=== PATIENT | female | born 2000 | race African-American/Black ===

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

== ENCOUNTER 2018-12-14 | Emergency (ER) | payer SELFPAY ==
[2017-10-07 16:00] VITALS: BP 89/52
[~2018-12-14] MED LIST: BENZ9GEL MM; OLOP5DRO EACHEYE; SULF1TAB24 PO
== END 2018-12-14 02:08 | disposition left against medical advice (07) ==
LOC: ER
DX: H92.02 Otalgia, left ear (principal); Z53.21 Procedure and treatment not carried out due to patient leaving prior to being seen by health care provider

== ENCOUNTER 2020-01-03 12:38 | Emergency (ER) | payer SELFPAY ==
[~2020-01-03] VITALS: Ht 165.1 cm; Wt 53.0 kg
[2020-01-03 13:31] VITALS: BP 106/67
[2020-01-03] MEDS ORDERED: LIDOCAINE 1% Multi-Dose 20 ML VIAL. INJ ONE (14:45)
[2020-01-03] MEDS ORDERED: CEPH-264 PO (15:11)
--- NOTE | 2020-01-03 15:12 | PHYS DOC ---
Past Medical History Past Medical History: No Pertinent History Past Surgical History: No Surgical History Smoking Status: Never Smoker Alcohol Use: None Drug Use: None General Adult EDM: Chief Complaint: FINGER INJURY HPI: HPI: Patient is a 19 year old female who presents with left middle finger paronychia x2 days. She states is not been draining. She states it is tender to touch and its 1+ swollen. Denies numbness or tingling, coolness of the extremity, skin color changes. Cap refill less than 2 seconds. Radial pulse strong and present. Skin pink warm and dry. Patient denies fever. Patient denies past medical history or any medications daily. She rates her pain at this time an 8 out of 10 and is throbbing and tender. There is no radiation. Review of Systems: Review of Systems: Constitutional: Denies fever or chills. [] Eyes: Denies change in visual acuity. [] HENT: Denies nasal congestion or sore throat. [] Respiratory: Denies cough or shortness of breath. [] Cardiovascular: Denies chest pain. Left fingertip 1+ edema. [] GI: Denies abdominal pain, nausea, vomiting, bloody stools or diarrhea. [] : Denies dysuria. [] Musculoskeletal: Denies back pain or joint pain. Fingertip pain. [] Integument: Denies rash. Left fingertip infection, redness and tenderness. [] Neurologic: Denies headache, focal weakness or sensory changes. [] Endocrine: Denies polyuria or polydipsia. [] Lymphatic: Denies swollen glands. [] Psychiatric: Denies depression or anxiety. [] Heart Score: Risk Factors: Risk Factors: DM, Current or recent (<one month) smoker, HTN, HLP, family history of CAD, obesity. Risk Scores: Score 0 - 3: 2.5% MACE over next 6 weeks - Discharge Home Score 4 - 6: 20.3% MACE over next 6 weeks - Admit for Clinical Observation Score 7 - 10: 72.7% MACE over next 6 weeks - Early Invasive Strategies Current Medications: Current Medications Medications (Trade) Dose Ordered Sig/Forest Start Time Stop Time Status Last Admin Dose Admin Lidocaine HCl (Lidocaine 1% 20ml Vial) 20 ml 1X ONCE 01/03/20 14:45 01/03/20 14:46 DC 01/03/20 14:53 20 ML Allergies: Allergies: Allergies Coded Allergies Type Severity Reaction Last Updated Verified No Known Drug Allergies 08/05/14 No Physical Exam: PE: Constitutional: Well developed, well nourished, no acute distress, non-toxic appearance. [] HENT: Normocephalic, atraumatic, bilateral external ears normal, oropharynx moist, no oral exudates, nose normal. [] Eyes: PERRLA, EOMI, conjunctiva normal, no discharge. [] Neck: Normal range of motion, no tenderness, supple, no stridor. [] Cardiovascular:Heart rate regular rhythm, no murmur [] Lungs & Thorax: Bilateral breath sounds clear to auscultation [] Abdomen: Bowel sounds normal, soft, no tenderness, no masses, no pulsatile masses. [] Skin: Warm, dry, left fingertip erythema, no rash. [] Back: No tenderness, no CVA tenderness. [] Extremities: No tenderness, no cyanosis, no clubbing, ROM intact, fingertip 1+ edema. [] Neurologic: Alert and oriented X 3, normal motor function, normal sensory function, no focal deficits noted. [] Psychologic: Affect normal, judgement normal, mood normal. [] Current Patient Data: Vital Signs: Vital Signs Date Time Temp Pulse Resp B/P (MAP) Pulse Ox O2 Delivery O2 Flow Rate FiO2 01/03/20 13:31 98.6 77 16 106/67 (80) 97 Room Air 98.6 EKG: EKG: [] Radiology/Procedures: Radiology/Procedures: [] Course & Med Decision Making: Course & Med Decision Making Pertinent Labs and Imaging studies reviewed. (See chart for details) See HPI. Patient has full range of motion of all joints in the finger. No joint laxity. Nailbed is not affected. Patient is placed on Keflex antibiotic. She is to follow-up with her primary care physician. My I&D Location: Left middle finger tip Anesthesia: 1% lidocaine Scalpel size: #11 Skin: Reddened, tender 1+ swelling Drainage: Purulent drainage Packing: None Patient tolerated the procedure well with no complications. The area was prepped and draped in usual sterile fashion. Area was cleaned with chloehexidine prior to procedure. Return for signs and symptoms of infection education given. Patient to return in 48 hours for wound recheck. [] Dragon Disclaimer: Jonnathan Disclaimer: This electronic medical record was generated, in whole or in part, using a voice recognition dictation system. Departure Departure Impression: Primary Impression: Paronychia Disposition: 01 HOME, SELF-CARE Condition: STABLE Referrals: NO PCP (PCP) Patient Instructions: Paronychia Additional Instructions: Use warm water Epson salt soaks as much as possible during the day. Keep clean and covered. Take antibiotic with water and as prescribed. Return for worsening symptoms. Scripts Cephalexin (KEFLEX) 500 Mg Capsule 1 CAP PO TID for 7 Days, #21 CAP 0 Refills Prov: TOYIN LUCAS APRN 01/03/20 Justicifation of Admission Dx: Justifications for Admission: Justification of Admission Dx: N/A TOYIN LUCAS APRN Jan 03, 2020 15:11
== END 2020-01-03 15:34 | disposition home or self-care (01) ==
LOC: ER 12:38
DX: L03.012 Cellulitis of left finger (principal)
CPT/HCPCS: 10060; 99283; J3490

== ENCOUNTER 2020-08-24 15:43 | Emergency (ER) | payer SELFPAY ==
[~2020-08-24] VITALS: Ht 160 cm; Wt 52.0 kg
[~2020-08-24 15:43] MED LIST changes: +CEPH-264 PO
[2020-08-24 17:28] LABS: BILIRUBIN,URINE SMALL (NEG); CLARITY,URINE CLEAR; COLOR,URINE YELLOW; NITRITE,URINE NEGATIVE (NEG); PH,URINE 7.5 (<5.0-8.0); PROTEIN,URINE 30 mg/dL (NEG-TRACE)
[2020-08-24] MEDS ORDERED: IV NORMAL SALINE 1000ML BAG 1,000 ML IV ONE (17:30)
[2020-08-24 17:35] LABS: BASO # 0.1 x10^3/uL (0.0-0.2); BASO % 1 % (0-3); EOS % 0 % (0-3); HEMATOCRIT 33.1 % (36.0-47.0); HEMOGLOBIN 11.2 g/dL (12.0-15.5); LYMPH # 1.4 x10^3/uL (1.0-4.8); LYMPH % 15 % (24-48); MEAN CORPUSCULAR HEMOGLOBIN 30 pg (25-35); MEAN CORPUSCULAR HGB CONC 34 g/dL (31-37); MEAN CORPUSCULAR VOLUME 88 fL (79-100); MONO # 0.5 x10^3/uL (0.0-1.1); MONO % 6 % (0-9); NEUT # 6.9 x10^3/uL (1.8-7.7); NEUT % 78 % (31-73); PLATELET COUNT 374 x10^3/uL (140-400); RED BLOOD COUNT 3.74 x10^6/uL (3.50-5.40); RED CELL DISTRIBUTION WIDTH 12.5 % (11.5-14.5); WHITE BLOOD COUNT 8.9 x10^3/uL (4.0-11.0)
[2020-08-24 17:39] LABS: BACTERIA,URINE FEW /HPF (0-FEW); RBC,URINE 0 /HPF (0-2)
[2020-08-24 17:44] LABS: CALCIUM 8.6 mg/dL (8.5-10.1); CREATININE 0.6 mg/dL (0.6-1.0); GFR 151.3; POTASSIUM 3.5 mmol/L (3.5-5.1)
[2020-08-24 17:51] LABS: ALBUMIN 3.9 g/dL (3.4-5.0); ALBUMIN/GLOBULIN RATIO 1.2 (1.0-1.7); MAGNESIUM 1.9 mg/dL (1.8-2.4); TOTAL PROTEIN 7.2 g/dL (6.4-8.2)
--- NOTE | 2020-08-24 18:38 | PHYS DOC ---
Past Medical History Past Medical History: No Pertinent History Past Surgical History: No Surgical History Smoking Status: Never Smoker Alcohol Use: None Drug Use: None General Adult EDM: Chief Complaint: DIZZY/LIGHT HEADED HPI: HPI: Patient is a 20 year old [f__sex] who presents with [] Review of Systems: Review of Systems: Constitutional: Denies fever or chills Eyes: Denies redness or eye pain HENT: Denies nasal congestion or sore throat Respiratory: Denies cough or shortness of breath Cardiovascular: Denies chest pain or palpitations GI: Denies abdominal pain, nausea, or vomiting : Denies dysuria or hematuria Musculoskeletal: Denies back pain or joint pain Integument: Denies rash or skin lesions Neurologic: Denies headache, focal weakness or sensory changes Complete systems were reviewed and found to be within normal limits, except as documented in this note. Heart Score: C/O Chest Pain: N/A Current Medications: Current Medications Medications (Trade) Dose Ordered Sig/Forest Start Time Stop Time Status Last Admin Dose Admin Sodium Chloride 1,000 ml @ 1,000 mls/hr 1X ONCE 08/24/20 17:30 08/24/20 18:29 DC 08/24/20 17:35 1,000 MLS/HR Allergies: Allergies: Allergies Coded Allergies Type Severity Reaction Last Updated Verified No Known Drug Allergies 08/05/14 No Physical Exam: PE: Constitutional: Well developed, well nourished, no acute distress, non-toxic appearance HENT: Normocephalic, atraumatic Eyes: PERRL, EOMI, conjunctiva normal, no discharge Neck: Normal range of motion, no tenderness, supple Lungs & Thorax: No respiratory distress, equal chest rise and fall Abdomen: Soft, no tenderness Skin: Warm, dry, no erythema, no rash Back: No tenderness, no CVA tenderness Extremities: No tenderness, ROM intact, no edema Neurologic: Alert and oriented X 3, normal motor function, normal sensory function, no focal deficits noted Psychologic: Affect normal, judgment normal Current Patient Data: Labs: Laboratory Tests Test 08/24/20 15:45 08/24/20 15:55 08/24/20 16:50 Urine Collection Type Unknown Urine Color Yellow Urine Clarity Clear Urine pH 7.5 (<5.0-8.0) Urine Specific [place] 1.020 (1.000-1.030) Urine Protein 30 mg/dL (NEG-TRACE) Urine Glucose (UA) Negative mg/dL (NEG) Urine Ketones (Stick) 40 mg/dL (NEG) Urine Blood Negative (NEG) Urine Nitrite Negative (NEG) Urine Bilirubin Small (NEG) Urine Urobilinogen Dipstick 1.0 mg/dL (0.2 mg/dL) Urine Leukocyte Esterase Small (NEG) Urine RBC 0 /HPF (0-2) Urine WBC 1-4 /HPF (0-4) Urine Squamous Epithelial Cells Mod /LPF Urine Bacteria Few /HPF (0-FEW) Urine Mucus Marked /LPF POC Urine HCG, Qualitative Hcg negative (Negative) White Blood Count 8.9 x10^3/uL (4.0-11.0) Red Blood Count 3.74 x10^6/uL (3.50-5.40) Hemoglobin 11.2 g/dL (12.0-15.5) L Hematocrit 33.1 % (36.0-47.0) L Mean Corpuscular Volume 88 fL (79-100) Mean Corpuscular Hemoglobin 30 pg (25-35) Mean Corpuscular Hemoglobin Concent 34 g/dL (31-37) Red Cell Distribution Width 12.5 % (11.5-14.5) Platelet Count 374 x10^3/uL (140-400) Neutrophils (%) (Auto) 78 % (31-73) H Lymphocytes (%) (Auto) 15 % (24-48) L Monocytes (%) (Auto) 6 % (0-9) Eosinophils (%) (Auto) 0 % (0-3) Basophils (%) (Auto) 1 % (0-3) Neutrophils # (Auto) 6.9 x10^3/uL (1.8-7.7) Lymphocytes # (Auto) 1.4 x10^3/uL (1.0-4.8) Monocytes # (Auto) 0.5 x10^3/uL (0.0-1.1) Eosinophils # (Auto) 0.0 x10^3/uL (0.0-0.7) Basophils # (Auto) 0.1 x10^3/uL (0.0-0.2) Sodium Level 142 mmol/L (136-145) Potassium Level 3.5 mmol/L (3.5-5.1) Chloride Level 106 mmol/L (98-107) Carbon Dioxide Level 27 mmol/L (21-32) Anion Gap 9 (6-14) Blood Urea Nitrogen 12 mg/dL (7-20) Creatinine 0.6 mg/dL (0.6-1.0) Estimated GFR (Cockcroft-Gault) 151.3 BUN/Creatinine Ratio 20 (6-20) Glucose Level 95 mg/dL (70-99) Calcium Level 8.6 mg/dL (8.5-10.1) Magnesium Level 1.9 mg/dL (1.8-2.4) Total Bilirubin 1.0 mg/dL (0.2-1.0) Aspartate Amino Transferase (AST) 13 U/L (15-37) L Alanine Aminotransferase (ALT) 14 U/L (14-59) Alkaline Phosphatase 62 U/L (46-116) Creatine Kinase 92 U/L (26-192) Total Protein 7.2 g/dL (6.4-8.2) Albumin 3.9 g/dL (3.4-5.0) Albumin/Globulin Ratio 1.2 (1.0-1.7) Laboratory Tests 08/24/20 16:50 Laboratory Tests 08/24/20 16:50 Vital Signs: Vital Signs Date Time Temp Pulse Resp B/P (MAP) Pulse Ox O2 Delivery O2 Flow Rate FiO2 08/24/20 16:14 98.1 71 12 100/54 (69) 98 Room Air 98.1 EKG: EKG: @1753 NSR at 61bpm, NO ST elevation, QRS 66ms, QT/QTc 378/382ms Radiology/Procedures: Radiology/Procedures: [] Course & Med Decision Making: Course & Med Decision Making Pertinent Labs and Imaging studies reviewed. (See chart for details) [] Dragon Disclaimer: Dragon Disclaimer: This electronic medical record was generated, in whole or in part, using a voice recognition dictation system. Departure Departure Impression: Primary Impression: Near syncope Disposition: 01 HOME / SELF CARE / HOMELESS Condition: STABLE Referrals: NO PCP (PCP) Patient Instructions: Near-Syncope, [id number] DEMARIO FRIAS DO August 24, 2020 18:38
[2020-08-24 18:44] VITALS: BP 118/68
--- NOTE | 2020-08-24 18:48 | EKG ---
[facility] [address] [place] [address] Test Date: 2020-08-24 Test Time: 17:53:45 Pat Name: YAMILA AQUINO Department: Room: Gender: F Piece Hand: : 2000 Requested By: DEMARIO FRIAS Order Number: [id number] Reading MD: Measurements Intervals [place] Rate: 61 P: 55 IA: 170 QRS: 48 QRSD: 66 T: 42 QT: 378 QTc: 382 Interpretive Statements SINUS RHYTHM NO SPECIFIC ECG ABNORMALITIES RI6.01 No previous ECG available for comparison
== END 2020-08-24 19:11 | disposition home or self-care (01) ==
LOC: ER 15:43
DX: R55 Syncope and collapse (principal)
CPT/HCPCS: 36415; 80053; 81001; 81025; 82550; 83735; 85025; 87086; 93005; 96360; 99285; J7030

== ENCOUNTER 2021-06-15 11:46 | Emergency (ER) | payer SELFPAY ==
[~2021-06-15] VITALS: Ht 162.6 cm; Wt 49.0 kg
[2021-06-15 12:55] VITALS: BP 94/56
[2021-06-15 13:27] LABS: U PREG PATIENT NEGATIVE (NEG)
[2021-06-15 13:32] LABS: BILIRUBIN,URINE NEGATIVE (NEG); CLARITY,URINE CLEAR; COLOR,URINE YELLOW
[2021-06-15 13:33] LABS: BACTERIA,URINE FEW /HPF (0-FEW); NITRITE,URINE NEGATIVE (NEG); PH,URINE 6.5 (<5.0-8.0); PROTEIN,URINE 30 mg/dL (NEG-TRACE); RBC,URINE OCC /HPF (0-2); UROBILINOGEN,URINE 0.2 mg/dL (0.2 mg/dL)
--- NOTE | 2021-06-15 14:03 | RAD ---
Exam Date: 06/15/2021 1:31 PM XR ABDOMEN 2V Indication: Reason: epigastric pain, constipation / Spl. Instructions: / History: . FINDINGS/ IMPRESSION: Supine and upright views are submitted. There is a non-dilated, non-obstructed bowel gas pattern. Air and fecal matter are seen within the c olon. The visualized osseous structures are intact. Electronically signed by: Mark Busby MD (06/15/2021 2:00 PM) [id number]
[2021-06-15] MEDS ORDERED: POLY119P4 PO (14:42)
--- NOTE | 2021-06-15 14:42 | PHYS DOC ---
Past Medical History Past Medical History: No Pertinent History Past Surgical History: No Surgical History Smoking Status: Never Smoker Alcohol Use: None Drug Use: None Adult General Chief Complaint Chief Complaint: ABDOMINAL PAIN HPI HPI The patient is a 20-year-old female who is otherwise healthy. She presents for evaluation of mild intermittent focal epigastric discomfort in association with constipation over the past few days. Discomfort is crampy and comes and goes; it was bothering her last night but is not present now. She has not been able to have a normal bowel movement in a few days. Contrary to the triage note, she has not had any lower abdominal pain. She denies fevers, nausea or vomiting, upper respiratory congestion/rhinorrhea, cough, sore throat, shortness of breath or chest pain of any kind, abdominal pain of any kind, flank pain, midline back pain, dysuria, hematuria, polyuria or oliguria, unusual vaginal discharge or bleeding (last menstrual period was a few days ago and was normal in length and character). Patient is alert, pleasantly interactive and in absolutely no acute distress with appropriate vital signs. Review of Systems Review of Systems A 12 point review of systems was completed and was negative except where noted in HPI above. Allergies Allergies Allergies Coded Allergies Type Severity Reaction Last Updated Verified No Known Drug Allergies 08/05/14 No Physical Exam Physical Exam 20-year-old female appearing nontoxic and in no acute distress. Head is normocephalic and atraumatic. Neck is supple and nontender. Oropharynx is m oist. Lungs are clear to auscultation at all stations. There is normal S1 and S2 without rubs or gallops and capillary refill is appropriate, less than 2 seconds globally. Abdomen is soft, nontender nondistended. Skin is warm and dry without cyanosis, clubbing or edema. Psychiatrically, the patient demonstrates appropriate mood and affect and is alert. Current Patient Data Vital Signs Vital Signs Date Time Temp Pulse Resp B/P (MAP) Pulse Ox O2 Delivery O2 Flow Rate FiO2 06/15/21 12:55 98.8 84 16 94/56 (69) 98 Room Air 98.8 Lab Values Laboratory Tests Test 06/15/21 13:03 06/15/21 13:16 Urine Collection Type Void Urine Color Yellow Urine Clarity Clear Urine pH 6.5 (<5.0-8.0) Urine Specific [place] >=1.030 (1.000-1.030) Urine Protein 30 mg/dL (NEG-TRACE) Urine Glucose (UA) Negative mg/dL (NEG) Urine Ketones (Stick) Negative mg/dL (NEG) Urine Blood Negative (NEG) Urine Nitrite Negative (NEG) Urine Bilirubin Negative (NEG) Urine Urobilinogen Dipstick 0.2 mg/dL (0.2 mg/dL) Urine Leukocyte Esterase Negative (NEG) Urine RBC Occ /HPF (0-2) Urine WBC 1-4 /HPF (0-4) Urine Squamous Epithelial Cells Mod /LPF Urine Bacteria Few /HPF (0-FEW) Urine Mucus Marked /LPF Urine Test Negative (NEG) POC Urine HCG, Qualitative Hcg negative (Negative) EKG EKG [] Radiology/Procedures Radiology/Procedures Exam Date: 06/15/2021 1:31 PM XR ABDOMEN 2V Indication: Reason: epigastric pain, constipation / Spl. Instructions: / History: . FINDINGS/ IMPRESSION: Supine and upright views are submitted. There is a non-dilated, non-obstructed bowel gas pattern. Air and fecal matter are seen within the colon. The visualized osseous structures are intact. Electronically signed by: Rubin Busby MD (06/15/2021 2:00 PM) [facility] DICTATED and SIGNED BY: RUBIN BUSBY MD DATE: 06/15/21 [id number] Course & Med Decision Making Course & Med Decision Making History and examination as well as abdominal plain films are compatible with uncomplicated constipation. Patient is well-appearing with a completely normal abdominal exam and no pain at this time. Will discharge home with a bottle of magnesium citrate to drink when she gets home and some MiraLAX to take for the next 1 week. She is to follow-up closely with primary care and understands that if she feels worse instead of better or develops other new symptoms of concern that she should return to the emergency department immediately for reevaluation. All questions are answered. Dragon Disclaimer Dragon Disclaimer This electronic medical record was generated, in whole or in part, using a voice recognition dictation system. Departure Departure Impression: Primary Impression: Constipation Disposition: HOME / SELF CARE / HOMELESS Condition: STABLE Patient Instructions: Constipation, Adult Additional Instructions: Follow-up very closely with your primary care doctor in the office in the next 2 to 4 days for reevaluation of your symptoms and a discussion of next best steps in care. Drink lots of fluids to stay well-hydrated and get plenty of rest. When you get home, drink the bottle of magnesium citrate to get things moving. Tomorrow, begin taking a scoop of MiraLAX in a glass of liquid twice a day to h elp keep things moving. Return to the emergency department right away for worsening symptoms of any kind or with any other new symptoms of concern. Scripts Polyethylene Glycol 3350 (MIRALAX) 119 Gm Powder 17 GM PO BID for constipation, #255 GM 0 Refills dissolve in water Prov: SHYLA JAMES MD 06/15/21 SHYLA JAMES MD Jun 15, 2021 14:42
[2021-06-15] MEDS ORDERED: MAGNESIUM CITRATE 296 ML SOLUTION. PO ONE (14:45)
== END 2021-06-15 14:50 | disposition home or self-care (01) ==
LOC: ER 11:46
DX: K59.00 Constipation, unspecified (principal)
CPT/HCPCS: 74021; 81001; 81025; 99284